=== PATIENT | female | born 1940 | race Caucasian/White ===

== ENCOUNTER → 2023-11-06 12:45 | Outpatient (REF) | payer MEDICARE, OTHER, SELFPAY ==
[2023-11-06 13:26] LABS: ALT (SGPT) 16 U/L (0-35); AST (SGOT) 30 U/L (14-36); Albumin 4.4 g/dl (3.5-5.0); Alkaline Phosphatase 69 U/L (38-126); Blood Urea Nitrogen 17 mg/dl (7-17); Calcium 9.5 mg/dl (8.4-10.2); Carbon Dioxide 30 mmol/L (22-30); Chloride 102 mmol/L (98-107); Glucose 88 mg/dl (70-99); HDL Cholesterol 85 mg/dl; LDL Cholesterol, Calculated 125 mg/dl; Sodium 137 mmol/L (135-145); Total Bilirubin 0.6 mg/dl (0.2-1.3); Total Cholesterol 237 mg/dl (50-199); Total Protein 6.8 g/dl (6.3-8.2); Triglyceride 136 mg/dl (10-149); Very Low Density Lipoprotein 27 mg/dl (0-30); eGFR > 60.00
[2023-11-06 13:57] LABS: TSH Reflex To Free T4 2.44 uIU/ml (0.47-4.68)
== END ==
LOC: OLABWIL 12:45
PROVIDERS: ATTENDING PHYSICIAN Nurse Practitioner Adult Health
DX: E78.5 Hyperlipidemia, unspecified (principal); I70.0 Atherosclerosis of aorta
CPT/HCPCS: 36415; 80053; 80061; 84443

== ENCOUNTER → 2024-03-16 12:45 | Outpatient (REF) | payer MEDICARE, OTHER, SELFPAY ==
[2024-03-16 14:23] LABS: Amylase 97 U/L (30-110); Blood Urea Nitrogen 13 mg/dl (7-17); Calcium 9.7 mg/dl (8.4-10.2); Carbon Dioxide 29 mmol/L (22-30); Chloride 102 mmol/L (98-107); Glucose 80 mg/dl (70-99); Lipase 197 U/L (23-300); Potassium 4.5 mmol/L (3.5-5.1); Sodium 139 mmol/L (135-145); eGFR > 60.00
[2024-03-16 14:24] LABS: C-Reactive Protein < 5.00 mg/L (0.0-10.00)
[2024-03-16 14:30] LABS: Erythrocyte Sed Rate 13 mm/hour (0-20)
[2024-03-16 14:33] LABS: Glycohemoglobin (HgbA1c) 5.6 % (4.0-5.6)
== END ==
LOC: OLABWIL 12:45
PROVIDERS: ATTENDING PHYSICIAN Nurse Practitioner Adult Health
DX: F41.0 Panic disorder [episodic paroxysmal anxiety] (principal); E87.1 Hypo-osmolality and hyponatremia; K86.2 Cyst of pancreas; M54.16 Radiculopathy, lumbar region; R73.09 Other abnormal glucose
CPT/HCPCS: 36415; 80048; 82150; 83036; 83690; 85652; 86140

== ENCOUNTER → 2024-04-20 12:15 | Outpatient (REF) | payer MEDICARE, OTHER, SELFPAY ==
[2024-04-20 13:46] LABS: Erythrocyte Sed Rate 16 mm/hour (0-20)
[2024-04-20 14:09] LABS: C-Reactive Protein < 5.00 mg/L (0.0-10.00)
[2024-04-21 09:08] LABS: Glycohemoglobin (HgbA1c) 5.8 % (4.0-5.6)
== END ==
LOC: OLABWIL 12:15
PROVIDERS: ATTENDING PHYSICIAN Internal Medicine Rheumatology; FAMILY PHYSICIAN Nurse Practitioner Adult Health
DX: E11.9 Type 2 diabetes mellitus without complications (principal); E74.39 Other disorders of intestinal carbohydrate absorption; E78.5 Hyperlipidemia, unspecified; M15.0 Primary generalized (osteo)arthritis; M31.6 Other giant cell arteritis; M81.0 Age-related osteoporosis without current pathological fracture
CPT/HCPCS: 36415; 83036; 85652; 86140

== ENCOUNTER → 2024-06-22 10:09 | Outpatient (REF) | payer MEDICARE, OTHER, SELFPAY ==
[2024-06-22 11:18] LABS: % Basophils 0.7 % (0-2); % Eosinophils 2.4 % (0-6); % Immature Granulocytes 0.2 % (0-0.5); % Lymphocytes 41.8 % (20.5-51.1); % Monocytes 7.8 % (1.7-9.3); % Neutrophils 47.1 % (42.2-75.2); Absolute Eosinophils 0.1 10^3/uL (0-0.7); Absolute Lymphocytes 1.8 10^3/uL (1.2-3.4); Absolute Monocytes 0.3 10^3/uL (0.1-0.6); Hematocrit 38.4 % (37.0-47.0); Hemoglobin 12.6 g/dL (12.0-16.0); Mean Corp Hgb Conc. 32.8 g/dL (33.0-37.0); Mean Corpuscular Hgb 30.3 pg (27.0-31.0); Mean Corpuscular Volume 92.3 fL (81.0-99.0); Mean Platelet Volume 9.7 fL (7.4-10.4); Nucleated Red Blood Cells % 0 %; Platelet Count 216 10^3/uL (130-400); Red Blood Cell Count 4.16 10^6/uL (4.20-5.40); Red Cell Dist. Width 14.2 % (11.5-14.5); White Blood Cell Count 4.2 10^3/uL (4.8-10.8)
[2024-06-22 11:38] LABS: Erythrocyte Sed Rate 14 mm/hour (0-20)
[2024-06-22 11:58] LABS: Glycohemoglobin (HgbA1c) 5.7 % (4.0-5.6)
[2024-06-22 13:52] LABS: ALT (SGPT) 16 U/L (0-35); AST (SGOT) 30 U/L (14-36); Albumin 4.5 g/dl (3.5-5.0); Alkaline Phosphatase 50 U/L (38-126); Blood Urea Nitrogen 14 mg/dl (7-17); Calcium 9.7 mg/dl (8.4-10.2); Carbon Dioxide 31 mmol/L (22-30); Chloride 101 mmol/L (98-107); Glucose 84 mg/dl (70-99); HDL Cholesterol 74 mg/dl; LDL Cholesterol, Calculated 103 mg/dl; Potassium 4.2 mmol/L (3.5-5.1); Sodium 141 mmol/L (135-145); Total Bilirubin 0.6 mg/dl (0.2-1.3); Total Cholesterol 203 mg/dl (50-199); Total Protein 6.8 g/dl (6.3-8.2); Triglyceride 130 mg/dl (10-149); Very Low Density Lipoprotein 26 mg/dl (0-30); eGFR > 60.00
== END ==
LOC: OLABWIL 10:09
PROVIDERS: ATTENDING PHYSICIAN Nurse Practitioner Adult Health
DX: E78.5 Hyperlipidemia, unspecified (principal); M15.9 Polyosteoarthritis, unspecified; R73.9 Hyperglycemia, unspecified; K21.9 Gastro-esophageal reflux disease without esophagitis
CPT/HCPCS: 36415; 80053; 80061; 83036; 85025; 85652

== ENCOUNTER → 2024-08-24 10:06 | Outpatient (REF) | payer MEDICARE, OTHER, SELFPAY ==
[2024-08-24 10:52] LABS: % Basophils 0.6 % (0-2); % Eosinophils 2.5 % (0-6); % Immature Granulocytes 0.2 % (0-0.5); % Lymphocytes 43.4 % (20.5-51.1); % Monocytes 8.4 % (1.7-9.3); % Neutrophils 44.9 % (42.2-75.2); Absolute Eosinophils 0.1 10^3/uL (0-0.7); Absolute Lymphocytes 2.2 10^3/uL (1.2-3.4); Absolute Monocytes 0.4 10^3/uL (0.1-0.6); Absolute Neutrophils 2.3 10^3/uL (1.4-6.5); Hematocrit 39.3 % (37.0-47.0); Hemoglobin 13.1 g/dL (12.0-16.0); Mean Corp Hgb Conc. 33.3 g/dL (33.0-37.0); Mean Corpuscular Hgb 31.2 pg (27.0-31.0); Mean Corpuscular Volume 93.6 fL (81.0-99.0); Mean Platelet Volume 9.7 fL (7.4-10.4); Nucleated Red Blood Cells % 0 %; Platelet Count 219 10^3/uL (130-400); Red Cell Dist. Width 14.6 % (11.5-14.5); White Blood Cell Count 5.1 10^3/uL (4.8-10.8)
[2024-08-24 11:09] LABS: ALT (SGPT) 22 U/L (0-35); AST (SGOT) 35 U/L (14-36); Albumin 4.8 g/dl (3.5-5.0); Alkaline Phosphatase 50 U/L (38-126); Blood Urea Nitrogen 25 mg/dl (7-17); Calcium 9.8 mg/dl (8.4-10.2); Carbon Dioxide 32 mmol/L (22-30); Chloride 101 mmol/L (98-107); Glucose 93 mg/dl (70-99); Potassium 4.3 mmol/L (3.5-5.1); Sodium 142 mmol/L (135-145); Total Bilirubin 0.6 mg/dl (0.2-1.3); Total Protein 7.3 g/dl (6.3-8.2); eGFR > 60.00
[2024-08-24 11:15] LABS: C-Reactive Protein < 5.00 mg/L (0.0-10.00)
[2024-08-24 11:32] LABS: Vitamin D, 25-OH*** 41.2 ng/mL (30-80)
[2024-08-24 13:33] LABS: Erythrocyte Sed Rate 14 mm/hour (0-20)
== END ==
LOC: OLABWIL 10:06
PROVIDERS: ATTENDING PHYSICIAN Internal Medicine Rheumatology
DX: E55.9 Vitamin D deficiency, unspecified (principal); M15.0 Primary generalized (osteo)arthritis; M31.6 Other giant cell arteritis; M81.0 Age-related osteoporosis without current pathological fracture; Z79.899 Other long term (current) drug therapy
CPT/HCPCS: 36415; 80053; 82306; 85025; 85652; 86140

== ENCOUNTER → 2024-10-19 10:56 | Outpatient (REF) | payer MEDICARE, OTHER, SELFPAY ==
[2024-10-19 11:40] LABS: % Basophils 0.7 % (0-2); % Eosinophils 2.9 % (0-6); % Immature Granulocytes 0.2 % (0-0.5); % Lymphocytes 42.5 % (20.5-51.1); % Monocytes 8.4 % (1.7-9.3); % Neutrophils 45.3 % (42.2-75.2); Absolute Eosinophils 0.1 10^3/uL (0-0.7); Absolute Lymphocytes 1.9 10^3/uL (1.2-3.4); Absolute Monocytes 0.4 10^3/uL (0.1-0.6); Absolute Neutrophils 2.1 10^3/uL (1.4-6.5); Hematocrit 40.9 % (37.0-47.0); Hemoglobin 12.8 g/dL (12.0-16.0); Mean Corp Hgb Conc. 31.3 g/dL (33.0-37.0); Mean Corpuscular Hgb 30.3 pg (27.0-31.0); Mean Corpuscular Volume 96.7 fL (81.0-99.0); Mean Platelet Volume 9.3 fL (7.4-10.4); Nucleated Red Blood Cells % 0 %; Platelet Count 205 10^3/uL (130-400); Red Blood Cell Count 4.23 10^6/uL (4.20-5.40); White Blood Cell Count 4.5 10^3/uL (4.8-10.8)
[2024-10-19 11:55] LABS: ALT (SGPT) 19 U/L (0-35); AST (SGOT) 29 U/L (14-36); Albumin 4.6 g/dl (3.5-5.0); Alkaline Phosphatase 59 U/L (38-126); Blood Urea Nitrogen 14 mg/dl (7-17); Calcium 9.6 mg/dl (8.4-10.2); Carbon Dioxide 29 mmol/L (22-30); Chloride 100 mmol/L (98-107); Glucose 83 mg/dl (70-99); HDL Cholesterol 60 mg/dl; LDL Cholesterol, Calculated 103 mg/dl; Potassium 4.3 mmol/L (3.5-5.1); Sodium 137 mmol/L (135-145); Total Bilirubin 0.7 mg/dl (0.2-1.3); Total Cholesterol 180 mg/dl (50-199); Total Protein 6.6 g/dl (6.3-8.2); Triglyceride 89 mg/dl (10-149); Very Low Density Lipoprotein 17 mg/dl (0-30); eGFR > 60.00
[2024-10-19 12:44] LABS: Glycohemoglobin (HgbA1c) 5.7 % (4.0-5.6)
== END ==
LOC: OLABWIL 10:56
PROVIDERS: ATTENDING PHYSICIAN Nurse Practitioner Adult Health
DX: K21.9 Gastro-esophageal reflux disease without esophagitis (principal); F10.10 Alcohol abuse, uncomplicated; D72.819 Decreased white blood cell count, unspecified; R73.09 Other abnormal glucose; E78.5 Hyperlipidemia, unspecified
CPT/HCPCS: 36415; 80053; 80061; 83036; 85025

== ENCOUNTER 2025-01-05 09:19 | Emergency (ER) | payer MEDICARE, OTHER, SELFPAY ==
[2025-01-05] VITALS (8 sets, daily range): BP systolic 132–156; BP diastolic 69–96; PULSE 72–80; BMI 22.5
--- NOTE | 2025-01-05 09:39 | ED.GENMED ---
History of Present Illness
General
Chief Complaint: Dizziness
Source: patient
Exam Limitations: none
Time Seen by Provider: 01/05/25 09:28
History of Present Illness
History of Present Illness:
84yoF with a history of hyperlipidemia, anxiety, mitral valve prolapse, and prior temporal arteritis presenting via EMS for evaluation of dizziness. She resides at [facility]. Symptoms have been ongoing for quite some time
although she states she is usually able to handle it. She started to have worsening symptoms last night. She reports feeling lightheaded like she is about to pass out or fall over with position changes. No vertiginous symptoms. She also reports
feeling weak, fatigued, with a head pressure. She states it feels like her blood sugar is low although her fingerstick glucose was 116 for EMS. She also is wondering if her symptoms might be related to 'depth perception' issues in her vision.
Additionally, she voices concern that her temporal arteritis is back although she admits that she is not having headaches like she was when she was diagnosed with this. She denies any chest pain or shortness of breath. Of note, patient stopped
taking Prozac and her statin 1 month ago. She is not taking any medications currently. She has an appointment scheduled with an eye doctor in 2 days.
Past History
Past History
ED Past Medical History: Hypercholesterolemia, NIDDM, Psychiatric (Anxiety) and Other (temporal arteritis, TIA,, Kidney stones)
ED Past Surgical History: Other (Hemorrhoids)
Social History
Tobacco: Non-smoker
Alcohol: Occasional
Drug: None
Personal:
Living: alone
Employment: Retired
Family History
Family History: Hypertension
Phy Exam
General Physical Exam
General Presentation: well appearing and no apparent distress
General age: appears stated age
General Skin: warm and dry
General Habitus: normal
General Mental: alert
ENT Exam
ENT Exam: TM's normal, neck supple and normocephalic
Eye Exam
Eye Exam: PERRL, EOMI and conjunctiva normal
Cardiovascular Exam
Cardiovascular Exam: regular rate/rhythm, no edema and no murmur
Pulmonary Exam
Pulmonary Exam: lungs clear, no respiratory distress, no rales, no crackles, no rhonchi and no wheezing
Neurological Exam
Neurological Exam: alert and no motor deficits
[place] Coma Scale
Eye Opening: Spontaneous
Verbal Response: Oriented
Motor Response: Obeys Commands
GCS Total Score: 15
Skin Exam
Skin Exam: normal color and warm/dry
Psychiatric Exam
Psychiatric Exam: normal mood/affect
Course
Orders/Labs/Results
Orders:
Orders
01/05/25 09:27
EKG [Electrocardiogram (*1)] Urgent
Reason for Study: Fatigue / Weakness
EKG- Treatment ONCE
01/05/25 09:28
C-Reactive Protein Urgent
Comment: ADD ON
CBC/With Diff [Complete Blood Count/With Diff] Urgent
CMP [Comprehensive Metabolic Panel] Urgent
Erythrocyte Sed Rate Urgent
Comment: ADD ON
TSH Urgent
Comment: ADD ON
Urinalysis Reflex To Culture Urgent
Date Specimen was Collected: 01/05/25
Time Specimen was Collected: 09:27
Urine Microscopic Reflex Cult Urgent
Urine Culture Urgent
[place] Source: U
Specimen Description:
Date Specimen was Collected: 01/05/25
Time Specimen was Collected: 09:27
01/05/25 09:38
CT Head W/o Iv Contrast Urgent
Comment:
Reason For Exam: head pressure
Cardiac Monitoring- Treatment ONCE
Orthostatic VS- Treatment ONCE
0.9% Sodium Chloride 500 ml [Nss] 500 ml IV BOLUS
01/05/25 09:44
Add On- LAB Urgent
Tests Added?: ESR, CRP, TSH
Abnormal Lab Results
01/05/25
09:28
WBC 4.4 L 10^3/uL
(4.8-10.8)
Glucose 142 H mg/dl
(70-99)
Leukocyte Esterase Rfl 1+ A
(Negative)
Urine RBC 3-6 A /HPF
(0-2)
Urine Bacteria (Reflex) Few A
(Negative)
01/05/25 09:28
01/05/25 09:28
Vital Signs
Initial and Last Documented VS:
Initial Vital Signs
Pulse Ox
99
01/05/25 09:25
Last Documented Vital Signs
Temp Pulse Resp BP Pulse Ox
98.0 F 71 23 156/88 100
01/05/25 09:30 01/05/25 12:45 01/05/25 12:45 01/05/25 12:00 01/05/25 11:45
MDM/Problems Addressed
Differential Diagnosis Includes:
84yoF here with lightheadedness with standing, fatigue, and head pressure. Ongoing for a while but worse since last night. Recently stopped her Prozac and statin. No CP/SOB. She is mildly hypertensive with otherwise stable vital signs. She is
well-appearing no acute distress. Exam reassuring. Differential diagnosis includes but is not limited to: Orthostatic hypotension, dehydration, thyroid dysfunction, symptomatic anemia, UTI
Initial ED plan: Check CBC, CMP, TSH, ESR/CRP, UA, orthostatic vital signs, and CT head. IV fluid bolus.
*EKG
Interpreted by ED Provider?: Yes
EKG Intrepretation Date: 01/05/25
Heart Rate: 80
Rate: normal
Rhythm: sinus
[place]: normal axis
QRS Pattern: low voltage and right bundle branch block
Ischemia: no ischemia
*Critical Care Note
Total Time (30-74mins, 75-104mins- exclusive of procedures): Not Applicable
Update Note
Update Note:
Labs overall unremarkable including normal electrolytes, renal function, TSH. Both ESR and CRP are normal making temporal arteritis very unlikely. No overt signs of infection on urinalysis. Head CT negative for acute findings. Orthostatic vital
signs negative. Patient feeling improved on reassessment. No indication for hospitalization. She has an appt with her PCP tomorrow and her eye doctor in 2 days. ED return precautions discussed. Patient in agreement with plan and was discharged
in stable condition.
ED Attending Note
-
Portions of this chart may have been created with voice recognition software.� Occasional wrong word or��sound alike� substitutions may have occurred due to the inherent limitations of voice recognition software.
Discharge Plan
Departure
Patient Disposition: Home (Routine Discharge)
Date of Disposition: 01/05/25
Time of Disposition: 12:54
Patient with high blood pressure during this ER visit?: No
Discharge Problem:
Lightheadedness, Fatigue
Instructions: Dizziness
Prescriptions:
No Action
vitamin B complex 1 TAB tablet
1 tab PO DAILY
fluoxetine 20 MG capsule
20 mg PO DAILY
Immunitone Plus
1 tab PO DAILY
Vitamin D [place]
1 tab PO DAILY
sennosides [senna] 1 TABLET tablet
2 tab PO BID 0RF
magnesium hydroxide 30 ML suspension
30 ml PO DAILYPRN PRN (Reason: constipation) 0RF
aspirin 325 MG tablet,delayed release (DR/EC)
325 mg PO DAILY 0RF
docusate sodium 100 MG capsule
100 mg PO BID 0RF
oxycodone 5 MG tablet
5 mg PO Q4HPRN PRN (Reason: moderate-severe pain) Qty: 35 0RF
Rx Instructions:
1 tab moderate pain or 2 if pain severe
dx salma
ongoing therapy
naproxen sodium [Aleve] 220 MG tablet
220 mg PO BID Qty: 0 0RF
Rx Instructions:
*TAKE WITH FOOD
*DO NOT TAKE WITHIN 2H OF ASA
pantoprazole 40 MG tablet,delayed release (DR/EC)
40 mg PO HS Qty: 30 0RF
acetaminophen [Tylenol Extra Strength] 500 MG tablet
1,000 mg PO QID Qty: 1 0RF
Rx Instructions:
standing order
pantoprazole 40 MG tablet,delayed release (DR/EC)
40 mg PO DAILY Qty: 15 0RF
atorvastatin [Lipitor] 10 mg tablet
10 mg PO DAILY Qty: 30 0RF
Referrals:
Leticia Benson CRNP [Family Provider] -
Activity Restrictions/Additional Instructions:
Please follow-up with your family doctor tomorrow and the eye doctor on Friday as previously scheduled. Return to the ER with any new or worsening symptoms.
Interventions
Interventions:
*Risk Screen - Suicide Last Done: 01/05/25 09:30
*General Assessment Last Done: 01/05/25 09:30
*Neglect/Abuse Screening Last Done: 01/05/25 09:30
*ED- Fall Risk Assessment Last Done: 01/05/25 13:14
*ED COVID-19 Vaccine History Last Done: 01/05/25 09:30
*Nursing Disposition Last Done: 01/05/25 13:14
ED- Neurological Assessment Last Done: 01/05/25 11:27
ED- Cardiac Assessment Last Done: 01/05/25 11:27
Discharge Date and Time
Discharge Date/Time: 01/05/25 13:19
Print Language: GREENLANDIC
[2025-01-05 09:57] LABS: % Basophils 0.5 % (0-2); % Eosinophils 2.3 % (0-6); % Immature Granulocytes 0.2 % (0-0.5); % Monocytes 6.4 % (1.7-9.3); % Neutrophils 57.6 % (42.2-75.2); Absolute Eosinophils 0.1 10^3/uL (0-0.7); Absolute Lymphocytes 1.4 10^3/uL (1.2-3.4); Absolute Monocytes 0.3 10^3/uL (0.1-0.6); Absolute Neutrophils 2.5 10^3/uL (1.4-6.5); Hematocrit 39.4 % (37.0-47.0); Mean Corpuscular Hgb 30.4 pg (27.0-31.0); Mean Corpuscular Volume 92.3 fL (81.0-99.0); Mean Platelet Volume 9.1 fL (7.4-10.4); Nucleated Red Blood Cells % 0 %; Platelet Count 183 10^3/uL (130-400); Red Blood Cell Count 4.27 10^6/uL (4.20-5.40); Red Cell Dist. Width 14.3 % (11.5-14.5); White Blood Cell Count 4.4 10^3/uL (4.8-10.8)
--- NOTE | 2025-01-05 09:59 | EDRN ---
Patient ambulatory to the bathroom and back in bed, patient able to walk with assistance
[2025-01-05 10:01] LABS: ALT (SGPT) 13 U/L (0-35); AST (SGOT) 23 U/L (14-36); Albumin 4.5 g/dl (3.5-5.0); Alkaline Phosphatase 48 U/L (38-126); Blood Urea Nitrogen 11 mg/dl (7-17); Calcium 9.8 mg/dl (8.4-10.2); Carbon Dioxide 29 mmol/L (22-30); Chloride 101 mmol/L (98-107); Estimated Creatinine Clearance 52 ml/min; Glucose 142 mg/dl (70-99); Potassium 4.3 mmol/L (3.5-5.1); Sodium 140 mmol/L (135-145); Total Bilirubin 0.6 mg/dl (0.2-1.3); Total Protein 6.9 g/dl (6.3-8.2); eGFR > 60.00
[2025-01-05 10:06] LABS: Urine Albumin Negative (Neg - Trace); Urine Bilirubin Negative (Negative); Urine Character Clear (Clear); Urine Color Yellow; Urine Glucose Negative (Negative); Urine Ketone Negative (Negative); Urine Leukocyte 1+ (Negative); Urine Nitrite Negative (Negative); Urine Occult Blood Negative (Negative); Urine Urobilinogen Negative (Neg - 1+)
[2025-01-05 10:25] LABS: Urine Squamous Cell 26-30 /LPF (Few)
[2025-01-05 10:31] LABS: Urine Bacteria Few (Negative)
[2025-01-05 10:58] LABS: Erythrocyte Sed Rate 3 mm/hour (0-20)
[2025-01-05] MEDS: NSS 500 IV (11:21)
--- NOTE | 2025-01-05 11:28 | EDRN ---
Patient updated on labs, patient needing to use the restroom, patient walked to the restroom with minimal assistance and back in bed resting comfortably with call medel in reach.
[2025-01-05 12:06] LABS: C-Reactive Protein < 5.00 mg/L (0.0-10.00)
[2025-01-05 12:36] LABS: TSH 1.96 uIU/ml (0.47-4.68)
--- NOTE | 2025-01-05 13:11 | EDRN ---
Patient to be discharged back to facility they will be coming to pick her up, patient ambulatory into the restroom and taken out to wait for her ride, also provided her with gingerale and crackers.
== END 2025-01-05 13:19 | disposition home or self-care (01) ==
LOC: EMR 09:19
PROVIDERS: Emergency Medicine; EMERGENCY PHYSICIAN Emergency Medicine; FAMILY PHYSICIAN Nurse Practitioner Adult Health
DX: R42 Dizziness and giddiness (principal); R53.83 Other fatigue; E78.00 Pure hypercholesterolemia, unspecified; I34.1 Nonrheumatic mitral (valve) prolapse; E11.9 Type 2 diabetes mellitus without complications; F41.9 Anxiety disorder, unspecified; M31.6 Other giant cell arteritis; Z60.2 Problems related to living alone; Z82.49 Family history of ischemic heart disease and other diseases of the circulatory system; Z86.73 Personal history of transient ischemic attack (TIA), and cerebral infarction without residual deficits; Z87.19 Personal history of other diseases of the digestive system; Z87.442 Personal history of urinary calculi
CPT/HCPCS: 99284; 96360; 70450; 80053; 81003; 81015; 84443; 85025; 85652; 86140; 87086; 93005

== ENCOUNTER → 2025-01-11 09:49 | Outpatient (REF) | payer MEDICARE, OTHER, SELFPAY ==
[2025-01-11 10:32] LABS: ALT (SGPT) 13 U/L (0-35); AST (SGOT) 24 U/L (14-36); Albumin 4.2 g/dl (3.5-5.0); Alkaline Phosphatase 47 U/L (38-126); Blood Urea Nitrogen 22 mg/dl (7-17); Carbon Dioxide 31 mmol/L (22-30); Chloride 104 mmol/L (98-107); Glucose 77 mg/dl (70-99); Potassium 4.4 mmol/L (3.5-5.1); Sodium 142 mmol/L (135-145); Total Bilirubin 0.5 mg/dl (0.2-1.3); Total Protein 6.8 g/dl (6.3-8.2); eGFR > 60.00
[2025-01-11 10:37] LABS: C-Reactive Protein < 5.00 mg/L (0.0-10.00)
[2025-01-11 12:51] LABS: Erythrocyte Sed Rate 7 mm/hour (0-20)
[2025-01-11 13:30] LABS: Glycohemoglobin (HgbA1c) 5.7 % (4.0-5.6)
[2025-01-12 18:08] LABS: Insulin, Random 2 uIU/mL
== END ==
LOC: OLABWIL 09:49
PROVIDERS: ATTENDING PHYSICIAN Nurse Practitioner Adult Health
DX: R73.09 Other abnormal glucose (principal); M31.6 Other giant cell arteritis
CPT/HCPCS: 36415; 80053; 83036; 83525; 85652; 86140

== ENCOUNTER → 2025-02-01 12:50 | Outpatient (REF) | payer MEDICARE, OTHER, SELFPAY ==
[2025-02-01 13:40] LABS: % Basophils 0.7 % (0-2); % Eosinophils 2.1 % (0-6); % Immature Granulocytes 0.2 % (0-0.5); % Lymphocytes 39.8 % (20.5-51.1); % Monocytes 7.8 % (1.7-9.3); % Neutrophils 49.4 % (42.2-75.2); Absolute Eosinophils 0.1 10^3/uL (0-0.7); Absolute Lymphocytes 1.7 10^3/uL (1.2-3.4); Absolute Monocytes 0.3 10^3/uL (0.1-0.6); Absolute Neutrophils 2.1 10^3/uL (1.4-6.5); Hematocrit 39.4 % (37.0-47.0); Hemoglobin 12.7 g/dL (12.0-16.0); Mean Corp Hgb Conc. 32.2 g/dL (33.0-37.0); Mean Corpuscular Volume 93.1 fL (81.0-99.0); Mean Platelet Volume 9.8 fL (7.4-10.4); Nucleated Red Blood Cells % 0 %; Platelet Count 207 10^3/uL (130-400); Red Blood Cell Count 4.23 10^6/uL (4.20-5.40); Red Cell Dist. Width 14.4 % (11.5-14.5); White Blood Cell Count 4.3 10^3/uL (4.8-10.8)
[2025-02-01 13:49] LABS: Lipase 153 U/L (23-300)
[2025-02-01 14:04] LABS: Vitamin D, 25-OH*** 34.7 ng/mL (30-80)
[2025-02-01 14:18] LABS: TSH 2.85 uIU/ml (0.47-4.68)
[2025-02-01 14:37] LABS: Vitamin B12 514 pg/ml (239-931)
== END ==
LOC: OLABWIL 12:50
PROVIDERS: ATTENDING PHYSICIAN Family Medicine
DX: D72.819 Decreased white blood cell count, unspecified (principal); F10.10 Alcohol abuse, uncomplicated; F41.9 Anxiety disorder, unspecified; Z13.29 Encounter for screening for other suspected endocrine disorder; E53.8 Deficiency of other specified B group vitamins; Z51.81 Encounter for therapeutic drug level monitoring; E55.9 Vitamin D deficiency, unspecified; R47.9 Unspecified speech disturbances
CPT/HCPCS: 36415; 82306; 82607; 83690; 84443; 85025

== ENCOUNTER → 2025-02-15 11:20 | Outpatient (REF) | payer MEDICARE, OTHER, SELFPAY ==
[2025-02-15 12:39] LABS: Lipase 183 U/L (23-300)
== END ==
LOC: OLABWIL 11:20
PROVIDERS: ATTENDING PHYSICIAN Nurse Practitioner Adult Health
DX: K86.2 Cyst of pancreas (principal)
CPT/HCPCS: 36415; 83690; 84155; 84165

== ENCOUNTER → 2025-03-09 12:10 | Outpatient (REF) | payer MEDICARE, OTHER, SELFPAY | LOC: PAVMRI 12:10 | PROVIDERS: ATTENDING PHYSICIAN Nurse Practitioner Adult Health; FAMILY PHYSICIAN Nurse Practitioner Adult Health; OTHER PHYSICIAN Internal Medicine Rheumatology | DX: H53.9 Unspecified visual disturbance (principal); Z87.39 Personal history of other diseases of the musculoskeletal system and connective tissue; G45.9 Transient cerebral ischemic attack, unspecified; R90.82 White matter disease, unspecified; R26.89 Other abnormalities of gait and mobility | CPT/HCPCS: 70551 ==

== ENCOUNTER → 2025-08-09 09:45 | Outpatient (REF) | payer MEDICARE, OTHER, SELFPAY ==
[2025-08-09 12:16] LABS: Hematocrit 39.9 % (37.0-47.0); Hemoglobin 12.8 g/dL (12.0-16.0); Mean Corp Hgb Conc. 32.1 g/dL (33.0-37.0); Mean Corpuscular Volume 90.5 fL (81.0-99.0); Nucleated Red Blood Cells % 0 %; Platelet Count 214 10^3/uL (130-400); Red Cell Dist. Width 13.9 % (11.5-14.5)
[2025-08-09 13:33] LABS: ALT (SGPT) 13 U/L (0-35); AST (SGOT) 22 U/L (14-36); Albumin 4.3 g/dl (3.5-5.0); Alkaline Phosphatase 49 U/L (38-126); Amylase 82 U/L (30-110); Blood Urea Nitrogen 15 mg/dl (7-17); Calcium 9.4 mg/dl (8.4-10.2); Carbon Dioxide 32 mmol/L (22-30); Chloride 102 mmol/L (98-107); Glucose 75 mg/dl (70-99); Lipase 172 U/L (23-300); Potassium 4.2 mmol/L (3.5-5.1); Sodium 137 mmol/L (135-145); Total Protein 6.9 g/dl (6.3-8.2); eGFR > 60.00
[2025-08-09 15:33] LABS: C-Reactive Protein < 5.00 mg/L (0.0-10.00)
== END ==
LOC: OLABWIL 09:45
PROVIDERS: ATTENDING PHYSICIAN Nurse Practitioner Adult Health
DX: K57.92 Diverticulitis of intestine, part unspecified, without perforation or abscess without bleeding (principal)
CPT/HCPCS: 36415; 80053; 82150; 83690; 85025; 85652; 86140

== ENCOUNTER → 2025-09-01 10:37 | Outpatient (REF) | payer MEDICARE, OTHER, SELFPAY | LOC: OLABWIL 10:37 | PROVIDERS: ATTENDING PHYSICIAN Nurse Practitioner Adult Health | DX: R39.9 Unspecified symptoms and signs involving the genitourinary system (principal) | CPT/HCPCS: 87077; 87086; 87186 ==